=== PATIENT | male | born 1960 | race African-American/Black ===

== ENCOUNTER → 2020-12-20 | Outpatient (CLI) | payer OTHER ==
--- NOTE | 2020-12-20 13:18 | RAD ---
Bilateral lower extremity venous duplex study 12/20/2020 10:44 AM Clinical History: Bilateral lower extremity edema: Comparison: None Technique: Using a combination of real time ultrasound imaging and color-flow and pulse Doppler imagi ng techniques along with graded compression and augmentation, duplex evaluation of the deep venous sy stem of the both lower extremities was performed. Multiple images were obtained. Findings: There is no sonographic evidence of deep venous thrombosis involving the visualized deep ve nous structures of either lower extremity. Impression: No evidence of deep venous thrombosis Electronically signed by: Brannon Villegas MD (12/20/2020 1:16 PM) [id number]
== END ==
LOC: US 10:33
PROVIDERS: ATTEND Family Medicine
DX: R60.0 Localized edema (principal)
CPT/HCPCS: 93970